=== PATIENT | male | born 1965 | race Caucasian/White ===

== ENCOUNTER 2023-04-04 18:35 | Emergency (ER) | payer MEDICAID ==
[~2023-04-04] VITALS: Ht 177.8 cm; Wt 72.6 kg
[2023-04-04 19:29] VITALS: BP_SYST 101; PULSE 122; RESP 19; TEMP 97.9; O2SAT 96
--- NOTE | 2023-04-04 19:29 | NUR ---
Patient to ER bed 2 to gown for evaluation. Side rails up. Report given to REAGAN COLEMAN(REG).
--- NOTE | 2023-04-04 19:30 | NUR ---
ER at bedside examining patient.
[2023-04-04] MEDS ORDERED: NACL 0.9% 1,000 ML IV ONE (19:45)
[2023-04-04] MEDS ORDERED: ONDANSETRON HCL 4 MG/2 ML VIAL IVP ONE (19:45)
[2023-04-04 20:13] LABS: HEMATOCRIT 44.8 % (36-54); HEMOGLOBIN 15.1 g/dL (14.0-18.0); MEAN CORPUSCULAR HEMOGLOBIN 32 pg (27-31); MEAN CORPUSCULAR HGB CONC 34 % (32-36); MEAN CORPUSCULAR VOLUME 95 fL (79.0-98.0); PLATELET COUNT (AUTO) 194 K/uL (130-430); RED BLOOD CELL COUNT(AUTO) 4.71 MIL/uL (4.2-6.2); RED CELL DISTRIBUTION WIDTH 13.5 % (9.0-15.0)
--- NOTE | 2023-04-04 20:18 | NUR ---
Pt C/O vomitting X2 days No hx NKDA Sinus tach upon arrival NAD at this time Will continue to monitor
[2023-04-04 20:22] LABS: ALANINE AMINOTRANSFERASE 93 U/L (12-78); ALBUMIN 4.3 g/dL (3.4-4.8); ANION GAP 16 (5-15); ASPARTATE AMINOTRANSFERASE 65 U/L (10-37); CALCIUM 10.6 mg/dL (8.4-11.0); CHLORIDE 89 mmol/L (98-107); GFR AFRICAN AMERICAN 73 mL/min (>90); GLUCOSE 192 mg/dL (74-106); LIPASE 100 U/L (73-393); TOTAL BILIRUBIN 3.1 mg/dL (0.0-1.0); UREA NITROGEN, BLOOD 28 mg/dL (8-21)
[2023-04-04 20:40] LABS: BAND % (MANUAL) 5 % (0-6); BASOPHILS % (MANUAL) 0 % (0-2); EOSINOPHILS % (MANUAL) 0 % (0-7); LYMPHOCYTES % (MANUAL) 2 % (20-46); MONOCYTES % (MANUAL) 8 % (0-11)
[2023-04-04 20:54] LABS: PHOSPHORUS 3.1 mg/dL (2.7-4.5)
[2023-04-04] MEDS ORDERED: POTASSIUM CHLORIDE 20 MEQ/PKT PACKET PO ONE (21:15)
[2023-04-04] MEDS ORDERED: MAGNESIUM SULFATE 1 GM in NS 100 ML IV ONE (21:15)
[2023-04-04] MEDS ORDERED: MAGNESIUM SULFATE 1 GM/2 ML VIAL ONE (21:38)
[2023-04-04] MEDS ORDERED: POTASSIUM CHLORIDE 20 MEQ/PKT PACKET ONE (21:39)
[2023-04-04] MEDS ORDERED: MAGNESIUM SULFATE/D5W 100 ML IV ONE (21:42)
[2023-04-04] MEDS ORDERED: LIDOCAINE VISCOUS 2%, 15 ML UDC MM ONE (22:00)
[2023-04-04] MEDS ORDERED: MAG-AL HYDROX/SIMETH 30 ML UDC PO ONE (22:00)
[2023-04-04 23:12] VITALS: BP_SYST 136; PULSE 106; RESP 19; TEMP 97.9; O2SAT 96
[2023-04-04] MEDS ORDERED: ONDA-8 TL (23:40)
[2023-04-04] MEDS ORDERED: FAMO40TA71 PO (23:40)
--- NOTE | 2023-04-04 23:53 | NUR ---
Patient given written and verbal discharge instructions and verbalizes understanding. ER MD discussed with patient the results and treatment provided. Patient in stable condition. ID arm band removed. IV catheter removed intact and dressing applied, no active bleeding. Rx of famotidine given. Patient educated on pain management and to follow up with PMD. Pain Scale 0. Opportunity for questions provided and answered. Medication side effect fact sheet provided.
== END 2023-04-04 23:52 | disposition home or self-care (01) ==
LOC: SED 18:35
DX: K29.70 Gastritis, unspecified, without bleeding (principal); R11.10 Vomiting, unspecified; K59.00 Constipation, unspecified; R50.9 Fever, unspecified; Z79.899 Other long term (current) drug therapy
CPT/HCPCS: 99285; 74176; 96365; 96361; 96375; 85027; 80053; 83690; 83735; 84100; 85007; 84484; 36415; 93005; 74021; 76376; J2405; J7030; J3475